=== PATIENT | female | born 1975 | race Caucasian/White ===

== ENCOUNTER 2017-06-10 05:22 | Emergency (ER) | payer BC ==
--- NOTE | 2017-06-10 06:02 | XR ---
EXAM: XR Left Ankle Complete, 3 or More Views CLINICAL HISTORY: Reason: Pain TECHNIQUE: Frontal, lateral and oblique views of the left ankle. COMPARISON: No relevant prior studies available. FINDINGS: Bones/joints: Unremarkable. No acute fracture. No dislocation. Soft tissues: Mild soft tissue swelling over the lateral malleolus. IMPRESSION: No fracture or subluxation. Mild soft tissue swelling over the lateral malleolus.
--- NOTE | 2017-06-10 06:41 | ED ---
General Adult HPI - General Chief complaint: Extremity Injury, Lower Stated complaint: Lt Ankle Injury Time Seen by Provider: 06/10/17 05:34 Source: patient, RN notes reviewed, old records reviewed Mode of arrival: ambulatory Limitations: no limitations - History of Present Illness Initial comments: This is a 41-year-old female here status post fall. Patient slipped and fall tripping injuring left wrist and left ankle. Patient denies any other injury, denies any specific complaints aside from left ankle pain and swelling. Patient did invert and twist her left ankle - Related Data Allergies Allergy/AdvReac Type Severity Reaction Status Date / Time No Known Allergies Allergy Verified 06/10/17 05:35 Review of Systems ROS Statement: Those systems with pertinent positive or pertinent negative responses have been documented in the HPI. ROS Other: All systems not noted in ROS Statement are negative. Past Medical History Past Medical History: No Reported History History of Any Multi-Drug Resistant Organisms: None Reported Past Surgical History: Section Past Psychological History: No Psychological Hx Reported Smoking Status: Current every day smoker Past Alcohol Use History: None Reported Past Drug Use History: None Reported General Exam Limitations: no limitations General appearance: alert, in no apparent distress Head exam: Present: atraumatic, normocephalic, normal inspection Eye exam: Present: normal appearance, PERRL, EOMI. Absent: scleral icterus, conjunctival injection, periorbital swelling ENT exam: Present: normal exam, mucous membranes moist Neck exam: Present: normal inspection. Absent: tenderness, meningismus, lymphadenopathy Respiratory exam: Present: normal lung sounds bilaterally. Absent: respiratory distress, wheezes, rales, rhonchi, stridor Cardiovascular Exam: Present: regular rate, normal rhythm, normal heart sounds. Absent: systolic murmur, diastolic murmur, rubs, gallop, clicks GI/Abdominal exam: Present: soft, normal bowel sounds. Absent: distended, tenderness, guarding, rebound, rigid Extremities exam: Present: normal inspection, full ROM, normal capillary refill. Absent: tenderness, pedal edema, joint swelling, calf tenderness Back exam: Present: normal inspection Neurological exam: Present: alert, oriented X3, CN II-XII intact Psychiatric exam: Present: normal affect, normal mood Skin exam: Present: warm, dry, intact, normal color. Absent: rash Course Vital Signs 06/10/17 06/10/17 05:30 06:48 Temperature 98.1 F 97 F L Pulse Rate 87 75 Respiratory 16 18 Rate Blood Pressure 108/57 102/64 O2 Sat by Pulse 100 97 Oximetry - Reevaluation(s) Reevaluation #1: Patient is able to airway without difficulty Medical Decision Making - Medical Decision Making 41 female at ER status post slip and fall. Patient twisting left ankle x-ray negative for fracture, patient to be discharged home - Radiology Data Radiology results: report reviewed (X-ray left ankle is negative for acute disease), image reviewed Disposition Clinical Impression: Left ankle sprain Disposition: HOME SELF-CARE Condition: Good Instructions: Ankle Sprain (ED) Referrals: Nonstaff,Physician [REFERRING] - 1-2 days
[2017-06-10 06:55] VITALS: BP 102/64; PULSE 75; RESP 18; TEMP 97
== END 2017-06-10 06:48 | disposition home or self-care (01) ==
LOC: EC 05:22
DX: S93.401A Sprain of unspecified ligament of right ankle, initial encounter (principal); F17.200 Nicotine dependence, unspecified, uncomplicated; W01.0XXA Fall on same level from slipping, tripping and stumbling without subsequent striking against object, initial encounter
CPT/HCPCS: 99284